=== PATIENT | male | born 1960 | race Caucasian/White ===

== ENCOUNTER 2018-04-21 17:09 | Emergency (ER) | payer MEDICARE, MEDICAID ==
[~2018-04-21] VITALS: Ht 188 cm; Wt 117.9 kg
--- NOTE | 2018-04-21 17:19 | NUR ---
PT A/OX4, BIB [facility], C/O ANXIETY. PT IS HYPERVERBAL AND CONTINUES ON TANGENTIAL MONOLOGUE. VS WNL. PT DOES NOT APPEAR TO BE IN ANY APPARENT DISTRESS AT THIS TIME. ER MD AT BEDSIDE FOR MSE.
[2018-04-21] MEDS ORDERED: KETOROLAC TROMETHAMINE 30 MG INJ IM ONE (17:30)
[2018-04-21] MEDS ORDERED: KETOROLAC TROMETHAMINE 30 MG INJ ONE (17:30)
[2018-04-21] MEDS ORDERED: LORAZEPAM 2 MG/1 ML VIAL IM ONE (17:30)
[2018-04-21] MEDS ORDERED: LORAZEPAM 2 MG/1 ML VIAL ONE (17:30)
[2018-04-21 17:39] VITALS: BP 108/58
--- NOTE | 2018-04-21 17:39 | NUR ---
Patient discharged to home in stable conditon. Written and verbal after care instructions given. Patient verbalizes understanding of instructions. ALL BELONGINGS W/ PT. PT SELF-AMBULATED W/O DIFFICULTY.
--- NOTE | 2018-04-21 17:47 | NUR ---
PT PROVIDED W/ INFO RE SHELTERS AND CLINICS. PT STATES HE WILL RETURN TO HIS PRIOR LIVING ARRANGEMENT AND ATTEMPT TO WORK OUT A PLAN WITH HIS . PT OFFERED FOOD AND WATER, WHICH WERE REFUSED BY PT.
== END 2018-04-21 17:57 | disposition home or self-care (01) ==
LOC: ER 17:09
DX: F41.9 Anxiety disorder, unspecified (principal); M79.10 Myalgia, unspecified site
CPT/HCPCS: 96372 ×2; 99284; J1885; J2060; A4663